=== PATIENT | female | born 1970 | race Caucasian/White ===

== ENCOUNTER 2017-09-04 12:11 | Emergency (ER) | payer MEDICARE ==
[~2017-09-04] VITALS: Ht 162.6 cm; Wt 58.2 kg
[2017-09-04 13:29] LABS: BASOPHILS # (AUTO) 0.03 x10^3/uL (0-0.1); BASOPHILS % (AUTO) 1 % (0-1); EOSINOPHILS # (AUTO) 0.26 x10^3/uL (0-0.4); EOSINOPHILS % (AUTO) 5 % (1-7); LYMPHOCYTES # (AUTO) 1.58 x10^3/uL (1-3.4); LYMPHOCYTES % (AUTO) 33 % (22-44); MD NO; MEAN CORPUSCULAR HEMOGLOBIN 29.4 pg (27.0-34.8); MEAN CORPUSCULAR HGB CONC 33.8 g/dL (32.4-35.8); MEAN CORPUSCULAR VOLUME 87.1 fL (80-100); MONOCYTES # (AUTO) 0.45 x10^3/uL (0.2-0.8); MONOCYTES % (AUTO) 9 % (2-9); NEUTROPHILS # (AUTO) 2.46 x10^3/uL (1.8-6.8); NEUTROPHILS % (AUTO) 52 % (42-75); PLATELET COUNT 320 x10^3/uL (130-400); RED BLOOD COUNT 4.76 x10^6/uL (3.82-5.3); RED CELL DISTRIBUTION WIDTH 14.1 % (9.6-15.2)
[2017-09-04] MEDS ORDERED: ONDANSETRON 2MG/ML, 2ML IVPush ONE (13:30)
[2017-09-04] MEDS ORDERED: SODIUM CHLORIDE FLUSH 10ML SYR IVF ONE (13:30)
[2017-09-04 13:33] LABS: ALANINE AMINOTRANSFERASE 27 U/L (12-78); ALBUMIN 3.5 g/dL (3.4-5.0); ANION GAP 6 mmol/L (5-15); CALCIUM 8.4 mg/dL (8.5-10.1); CHLORIDE 110 mmol/L (98-107); CREATININE 1.01 mg/dL (0.55-1.02)
[2017-09-04 13:37] LABS: ALKALINE PHOSPHATASE 76 U/L (45-117); BILIRUBIN,TOTAL 0.2 mg/dL (0.2-1.0); TOTAL PROTEIN 6.8 g/dL (6.4-8.2)
[2017-09-04] MEDS ORDERED: MORPHINE SULFATE 4 MG/ML, 1ML ONE ×2 (13:49→15:32)
[2017-09-04] MEDS ORDERED: ONDANSETRON 2MG/ML, 2ML ONE (13:49)
[2017-09-04] MEDS: MORPHINE SULFATE 4 MG/ML, 1ML IVPush PRN ×2 (14:03→15:35)
[2017-09-04 15:05] LABS: CULTURE INDICATED? NO; MICROSCOPIC NOT IND
[2017-09-04 15:58] VITALS: BP 124/92
== END 2017-09-04 16:02 | disposition home or self-care (01) ==
LOC: ED 14:29
DX: R10.32 Left lower quadrant pain (principal); R19.7 Diarrhea, unspecified
CPT/HCPCS: 36415; 74176; 80053; 81003; 84703; 85025; 96374; 96375; 96376; 99285; J2405

== ENCOUNTER 2017-09-07 07:47 | Inpatient (IN) | payer MEDICARE ==
[~2017-09-07] VITALS: Ht 162.6 cm; Wt 58.7 kg
[2017-09-07] MEDS ORDERED: QUET300T5 PO (08:07)
[2017-09-07] MEDS ORDERED: KETOROLAC 30 MG/1 ML ONE (08:21)
[2017-09-07] MEDS ORDERED: CYCLOBENZAPRINE 10 MG TABLET ONE (08:21)
[2017-09-07] MEDS ORDERED: KETOROLAC 30 MG/1 ML IM ONE (08:30)
[2017-09-07] MEDS ORDERED: CYCLOBENZAPRINE 10 MG TABLET PO ONE (08:30)
[2017-09-07 08:40] LABS: BASOPHILS # (AUTO) 0.03 x10^3/uL (0-0.1); BASOPHILS % (AUTO) 1 % (0-1); EOSINOPHILS # (AUTO) 0.16 x10^3/uL (0-0.4); EOSINOPHILS % (AUTO) 4 % (1-7); LYMPHOCYTES # (AUTO) 1.24 x10^3/uL (1-3.4); LYMPHOCYTES % (AUTO) 28 % (22-44); MD NO; MEAN CORPUSCULAR HEMOGLOBIN 28.8 pg (27.0-34.8); MEAN CORPUSCULAR HGB CONC 33.5 g/dL (32.4-35.8); MEAN CORPUSCULAR VOLUME 85.9 fL (80-100); MEAN PLATELET VOLUME 8.1 fL (7.4-10.4); MONOCYTES # (AUTO) 0.42 x10^3/uL (0.2-0.8); MONOCYTES % (AUTO) 9 % (2-9); NEUTROPHILS # (AUTO) 2.63 x10^3/uL (1.8-6.8); NEUTROPHILS % (AUTO) 59 % (42-75); PLATELET COUNT 269 x10^3/uL (130-400); RED BLOOD COUNT 4.53 x10^6/uL (3.82-5.3); RED CELL DISTRIBUTION WIDTH 13.6 % (9.6-15.2)
[2017-09-07 09:45] LABS: HCT (SEDRATE) 38.9 % (34.6-47.8)
[2017-09-07] MEDS ORDERED: HYDROcodone/APAP 5/325 TABLET ONE (09:45)
[2017-09-07] MEDS ORDERED: HYDROcodone/APAP 5/325 TABLET PO ONE (10:00)
[2017-09-07] MEDS ORDERED: ONDANSETRON 2MG/ML, 2ML IVPush ONE (10:30)
[2017-09-07] MEDS ORDERED: HYDROmorphone 2 MG/ML, 1ML ONE (11:04)
[2017-09-07] MEDS ORDERED: ONDANSETRON 2MG/ML, 2ML ONE (11:04)
[2017-09-07] MEDS: HYDROmorphone 1 MG/ML, 1ML IVPush PRN ×2 (11:07→11:59)
[2017-09-07 12:28] LABS: ALBUMIN 3.4 g/dL (3.4-5.0); ANION GAP 8 mmol/L (5-15); CALCIUM 8.2 mg/dL (8.5-10.1); CHLORIDE 108 mmol/L (98-107)
[2017-09-07] MEDS ORDERED: ENALAPRILAT 1.25 MG/ML, 2ML IVPush PRN (13:00)
[2017-09-07] MEDS ORDERED: LABETALOL 5MG/ML, 20ML IVPush PRN (13:00)
[2017-09-07] MEDS ORDERED: POLYETHYLENE GLYCOL 17 GM PACKET PO PRN (13:00)
[2017-09-07] MEDS ORDERED: BISACODYL 10 MG SUPP PR PRN (13:00)
[2017-09-07] MEDS: GABAPENTIN 300 MG CAPSULE PO SCH ×3 (13:00→21:50)
[2017-09-07] MEDS ORDERED: ACETAMINOPHEN 325 MG TABLET PO PRN (13:00)
[2017-09-07] MEDS: HYDROmorphone 2 MG/ML, 1ML IVPush PRN ×3 (14:38→21:50)
[2017-09-07 16:06] VITALS: BP 122/88
[2017-09-07] MEDS: NICOTINE 14MG/24 HR PATCH.TD24 TD SCH (17:44)
[2017-09-07 19:17] VITALS: BP 122/88
[2017-09-07 19:32] VITALS: BP 119/80
[2017-09-07] MEDS: DOCUSATE 100 MG CAPSULE PO SCH (21:50)
[2017-09-07] MEDS: QUETIAPINE 100MG TABLET PO SCH (21:50)
[2017-09-08] MEDS: HYDROmorphone 2 MG/ML, 1ML IVPush PRN ×3 (02:23→09:54)
[2017-09-08 02:30] VITALS: BP 127/88
[2017-09-08] MEDS: ONDANSETRON 2MG/ML, 2ML IVPush PRN ×2 (02:30→18:25)
[2017-09-08 06:22] LABS: MICROSCOPIC NOT IND
[2017-09-08 06:25] LABS: CULTURE INDICATED? NO
[2017-09-08 07:24] VITALS: BP 117/80
[2017-09-08] MEDS: DOCUSATE 100 MG CAPSULE PO SCH ×2 (09:54→21:49)
[2017-09-08] MEDS: GABAPENTIN 300 MG CAPSULE PO SCH ×3 (09:54→21:48)
[2017-09-08] MEDS ORDERED: HYDROmorphone 2 MG/ML, 1ML IVPush PRN (12:30)
[2017-09-08] MEDS: NICOTINE 14MG/24 HR PATCH.TD24 TD SCH (13:00)
[2017-09-08] MEDS: CYCLOBENZAPRINE 10 MG TABLET PO SCH ×2 (13:13→21:48)
[2017-09-08] MEDS: IBUPROFEN 200 MG TABLET PO PRN ×2 (13:13→21:48)
[2017-09-08 13:43] LABS: BASOPHILS # (AUTO) 0.04 x10^3/uL (0-0.1); BASOPHILS % (AUTO) 1 % (0-1); EOSINOPHILS # (AUTO) 0.36 x10^3/uL (0-0.4); EOSINOPHILS % (AUTO) 7 % (1-7); LYMPHOCYTES # (AUTO) 1.47 x10^3/uL (1-3.4); LYMPHOCYTES % (AUTO) 27 % (22-44); MD NO; MEAN CORPUSCULAR HEMOGLOBIN 29.2 pg (27.0-34.8); MEAN CORPUSCULAR HGB CONC 33.6 g/dL (32.4-35.8); MEAN CORPUSCULAR VOLUME 86.9 fL (80-100); MEAN PLATELET VOLUME 7.9 fL (7.4-10.4); MONOCYTES # (AUTO) 0.44 x10^3/uL (0.2-0.8); MONOCYTES % (AUTO) 8 % (2-9); NEUTROPHILS # (AUTO) 3.19 x10^3/uL (1.8-6.8); NEUTROPHILS % (AUTO) 58 % (42-75); PLATELET COUNT 271 x10^3/uL (130-400); RED BLOOD COUNT 4.54 x10^6/uL (3.82-5.3); RED CELL DISTRIBUTION WIDTH 14.1 % (9.6-15.2)
[2017-09-08 13:56] LABS: ALBUMIN 3.3 g/dL (3.4-5.0); ANION GAP 9 mmol/L (5-15); CALCIUM 8.5 mg/dL (8.5-10.1); CHLORIDE 102 mmol/L (98-107)
[2017-09-08 14:00] LABS: ALANINE AMINOTRANSFERASE 23 U/L (12-78); ALKALINE PHOSPHATASE 70 U/L (45-117); BILIRUBIN,TOTAL 0.3 mg/dL (0.2-1.0); CREATININE 0.96 mg/dL (0.55-1.02); TOTAL PROTEIN 6.3 g/dL (6.4-8.2)
[2017-09-08 14:18] VITALS: BP 125/79
[2017-09-08] MEDS: HYDROcodone/APAP 5/325 TABLET PO PRN ×2 (18:25→23:15)
[2017-09-08 19:41] VITALS: BP 122/76
[2017-09-08] MEDS: QUETIAPINE 100MG TABLET PO SCH (21:48)
[2017-09-09 03:29] VITALS: BP 110/74
[2017-09-09] MEDS: HYDROcodone/APAP 5/325 TABLET PO PRN ×2 (03:36→09:58)
[2017-09-09 06:59] VITALS: BP 122/83
[2017-09-09] MEDS: GABAPENTIN 300 MG CAPSULE PO SCH (09:58)
[2017-09-09] MEDS: ONDANSETRON 2MG/ML, 2ML IVPush PRN (09:58)
[2017-09-09] MEDS: DOCUSATE 100 MG CAPSULE PO SCH (09:59)
[2017-09-09] MEDS: CYCLOBENZAPRINE 10 MG TABLET PO SCH (09:59)
== END 2017-09-09 11:15 | disposition left against medical advice (07) | DRG 395 ==
LOC: ED 09:29 → EDIP 12:06 → 3NE 13:58
PROVIDERS: ADMIT Family Medicine; ATTEND Family Medicine
DX: K40.90 Unilateral inguinal hernia, without obstruction or gangrene, not specified as recurrent (principal); F17.210 Nicotine dependence, cigarettes, uncomplicated; F32.9 Major depressive disorder, single episode, unspecified; K59.00 Constipation, unspecified; G89.29 Other chronic pain; Z66 Do not resuscitate; Z96.643 Presence of artificial hip joint, bilateral; M54.9 Dorsalgia, unspecified; Z90.49 Acquired absence of other specified parts of digestive tract; Z76.5 Malingerer [conscious simulation]; Z80.3 Family history of malignant neoplasm of breast; Z90.721 Acquired absence of ovaries, unilateral
CPT/HCPCS: 36415; 76857; 80048; 80053; 81003; 82040; 83690; 85025; 85651; 96372; 96374; 96375; 96376; J1170; J1885; J2405